=== PATIENT | female | born 1955 | race American Indian/Alaskan Native ===

== ENCOUNTER 2018-06-22 07:59 | Outpatient (CLI) | payer MEDICAID | END 2018-06-22 08:00 | disposition home or self-care (01) | LOC: C.USIC 07:59 | DX: B18.2 Chronic viral hepatitis C (principal) ==

== ENCOUNTER 2018-07-13 10:24 | Outpatient (CLI) | payer MEDICAID | END 2018-07-13 10:25 | disposition home or self-care (01) | LOC: C.VASC 10:24 | DX: R60.9 Edema, unspecified (principal) ==